=== PATIENT | female | born 1970 | race African-American/Black ===

== ENCOUNTER → 2020-12-26 | Outpatient (CLI) | payer OTHER ==
[~2020-12-26] MED LIST: ACCUNEB SO1.25 MG/1 INH; APAP500 PO; BACTRIM DS TAB1 EACH PO; HYDROCODON-ACE1 EAC7 PO; IBUPROFEN 800800 MG PO; KEFLEX500 MG PO; MACROBID 100 M100 M1 PO; NOHOMEMEDICATIONS; NORCO 5-325 TA1 EACH PO; PREDNISONE 20 M20 MG PO; PYRIDIUM200 MG PO; VITAMIN B-12500 MCG PO
== END ==
LOC: SJCVC 13:22
PROVIDERS: ATTEND Nuclear Medicine Nuclear Cardiology
DX: R10.9 Unspecified abdominal pain (principal); J45.909 Unspecified asthma, uncomplicated; E78.5 Hyperlipidemia, unspecified; F41.1 Generalized anxiety disorder; I31.3 Pericardial effusion (noninflammatory); Z86.718 Personal history of other venous thrombosis and embolism; Z95.828 Presence of other vascular implants and grafts; Z79.899 Other long term (current) drug therapy